=== PATIENT | male | born 1960 | race African-American/Black ===

== ENCOUNTER 2020-01-26 10:26 | Emergency (ER) | payer OTHER ==
[~2020-01-26] VITALS: Ht 177.8 cm; Wt 45.4 kg
[~2020-01-26 10:26] MED LIST: ASPI-498 OR; LISI-285 PO
[2020-01-26] MEDS ORDERED: SODIUM CHLORIDE 0.9% 1,000 ML IV ONE ×2 (10:32)
[2020-01-26 10:51] LABS: Basophils # (auto) 0 10 ^3/uL (0-0.2); Eosinophils # (auto) 0 10 ^3/uL (0-0.8); Eosinophils % (auto) 0.4 % (0.0-7.0); Monocytes # (auto) 0.5 10 ^3/uL (0-1.3)
[2020-01-26 10:52] LABS: Basophils % (auto) 0.4 % (0.0-2.0); Hematocrit 36.6 % (41.0-53.0); Hemoglobin 11.9 g/dL (13.5-17.5); Lymphocytes # (auto) 1.1 10 ^3/uL (0.4-5.4); Mean Corpuscular Hemoglobin 27.3 pg (28.0-32.0); Mean Corpuscular Hgb Conc. 32.7 g/dL (32.0-36.0); Mean Corpuscular Volume 83.7 fL (80.0-100.0); Monocytes % (auto) 5.1 % (0.0-12.0); Neutrophils # (auto) 7.9 10 ^3/uL (1.6-8.6); Neutrophils % (auto) 82.1 % (37.0-80.0); Platelet Count (auto) 324 10^3/uL (140-450); Red Blood Cells 4.37 10^6/uL (4.5-5.90); Red Cell Distribution Width 14.4 % (11.8-14.3); White Blood Cell 9.6 10^3/uL (4.4-10.8)
[2020-01-26 11:13] LABS: Albumin 3.1 g/dL (3.4-5.0); Anion Gap 6 (5-15); Blood Urea Nitrogen 14 mg/dL (7-18); Carbon Dioxide 27 mmol/L (21-32); Chloride 100 mmol/L (98-107); Glucose 115 mg/dL (74-106); Potassium 3.3 mmol/L (3.5-5.1); Sodium 133 mmol/L (136-145)
[2020-01-26 11:19] LABS: Alanine Aminotransferase 18 U/L (16-61); Alkaline Phosphatase 98 U/L (45-117); Aspartate Aminotransferase 19 U/L (15-37); Bilirubin, Total 0.8 mg/dL (0.2-1.0); GFR African American 67 mL/min; GFR Non-African American 55 mL/min; Uric Acid 7.7 mg/dL (3.5-7.2)
[2020-01-26 12:31] LABS: Urine Bacteria NONE SEEN /hpf (None Seen); Urine Blood Negative /uL (Negative); Urine Mucus FEW (None Seen); Urine Specific Gravity 1.021 (1.001-1.035); Urine WBC 1 /hpf (0 - 3)
[2020-01-26] MEDS ORDERED: INDOMETHACIN 25 MG CAP PO ONE (13:00)
[2020-01-26] MEDS ORDERED: CARISOPRODOL 350 MG TAB PO ONE (13:00)
[2020-01-26 14:44] VITALS: BP 117/61
== END 2020-01-26 14:45 | disposition home or self-care (01) ==
LOC: EDBD 10:26 → ER 10:26
DX: M10.062 Idiopathic gout, left knee (principal); M10.061 Idiopathic gout, right knee; G89.29 Other chronic pain; R19.7 Diarrhea, unspecified; I10 Essential (primary) hypertension
CPT/HCPCS: 36415; 73560; 80053; 81001; 84484; 84550; 85025

== ENCOUNTER 2024-04-03 03:06 | Emergency (ER) | payer MEDICAID, OTHER ==
[~2024-04-03] VITALS: Ht 177.8 cm; Wt 109.2 kg
[2024-04-03 03:32] VITALS: BP 142/81; PULSE 60; RESP 16; TEMP 98.2
[2024-04-03] MEDS: KETOROLAC TROMETH 60MG/2ML VIAL IM ONE (04:25)
[2024-04-03 04:29] LABS: Basophils # (auto) 0 10 ^3/uL (0-0.2); Hemoglobin 12.9 g/dL (13.5-17.5); Neutrophils # (auto) 3.3 10 ^3/uL (1.6-8.6); Nucleated Red Blood Cells % 0.1 %
[2024-04-03 04:32] LABS: Basophils % (auto) 0.4 % (0.0-2.0); Eosinophils # (auto) 0.2 10 ^3/uL (0-0.8); Eosinophils % (auto) 3.5 % (0.0-7.0); Hematocrit 39.9 % (41.0-53.0); Lymphocytes # (auto) 2.9 10 ^3/uL (0.4-5.4); Lymphocytes % (auto) 41.9 % (10.0-50.0); Mean Corpuscular Hemoglobin 26.1 pg (28.0-32.0); Mean Corpuscular Hgb Conc. 32.3 g/dL (32.0-36.0); Mean Corpuscular Volume 80.8 fL (80.0-100.0); Monocytes # (auto) 0.5 10 ^3/uL (0-1.3); Monocytes % (auto) 7.6 % (0.0-12.0); Neutrophils % (auto) 46.6 % (37.0-80.0); Red Blood Cells 4.93 10^6/uL (4.5-5.90); Red Cell Distribution Width 15.1 % (11.8-14.3)
[2024-04-03 04:45] LABS: Alanine Aminotransferase 19 U/L (7-40); Albumin 4.5 g/dL (3.2-4.8); Alkaline Phosphatase 76 U/L (46-116); Anion Gap 5 (5-15); Aspartate Aminotransferase 19 U/L (13-40); BUN/Creatinine Ratio 11.7 (10.0-20.0); Bilirubin, Total 0.3 mg/dL (0.2-1.0); Blood Urea Nitrogen 15 mg/dL (9-23); Calcium 9.3 mg/dL (8.5-10.1); Carbon Dioxide 26 mmol/L (20-30); Chloride 105 mmol/L (98-107); Glucose 104 mg/dL (74-106); Potassium 3.9 mmol/L (3.5-5.1); Sodium 136 mmol/L (136-145); Total Protein 7.6 g/dL (5.7-8.2)
[2024-04-03 04:54] LABS: CRP High Sensitivity 1.07 mg/dL (<1.0)
[2024-04-03 05:17] VITALS: O2SAT 99
[2024-04-03 06:22] LABS: Erythrocyte Sedimentation Rate 46 mm/hr (0-20)
[2024-04-03] MEDS: DexAMETHasone SOD PHOS 10MG/1ML VIAL INJ IM ONE (06:35)
[2024-04-03] MEDS ORDERED: INDO50CA82 PO (06:48)
[2024-04-03] MEDS ORDERED: COLC1CAP PO (06:48)
== END 2024-04-03 07:19 | disposition home or self-care (01) ==
LOC: ER 03:06
DX: M25.521 Pain in right elbow (principal); I10 Essential (primary) hypertension; I82.621 Acute embolism and thrombosis of deep veins of right upper extremity; Z78.9 Other specified health status
CPT/HCPCS: 36415; 73200; 80053; 84550; 85025; 85379; 85652; 86141; 93971; 96372; 99285; J1100; J1885

== ENCOUNTER 2025-01-06 10:44 | Emergency (ER) | payer MEDICAID ==
[~2025-01-06] VITALS: Ht 175.3 cm; Wt 114.7 kg
[~2025-01-06 10:44] MED LIST changes: +COLC1CAP PO; +INDO50CA82 PO
[2025-01-06 11:52] VITALS: BP 143/73; PULSE 65; RESP 16; TEMP 99.5; O2SAT 95
[2025-01-06] MEDS ORDERED: AUG875T PO (12:37)
[2025-01-06] MEDS ORDERED: PROM1SOL4 PO (12:37)
[2025-01-06] MEDS ORDERED: PSEU120T18 PO (12:37)
[2025-01-06] MEDS ORDERED: BENZ100C97 PO (12:37)
[2025-01-06] MEDS ORDERED: IBUP-1455 PO (12:37)
--- NOTE | 2025-01-06 12:38 | ED.PDOC ---
SOB-HPI HPI Comments 64-year-old presents for URI symptoms x4 days. Complains of congestion, body aches, nonproductive cough and sore throat Chief Complaint: Flu like Time Seen by MD: 11:10 Primary Care Provider: SALINA Bell notes: Nurses Notes, Medications, Allergies Information Source: Patient Mode of Arrival: Ambulatory Past Medical History PAST MEDICAL HISTORY: HTN Surgical History: Denies all surgeries Family History Family History: Reviewed,noncontributory to illness Social History Smoker: Non-Smoker Alcohol: Denies ETOH Use Drugs: Denies Drug Use Lives In: Home All Other Systems: Reviewed and Negative (Per HPI) Physical Exam General Appearance: No Apparent Distress, Normal HEENT: Normal ENT Inspection, Pharynx Normal, TMs Normal Neck: Full Range of Motion, Non-Tender, Normal, Normal Inspection Respiratory: Chest Non-Tender, Lungs Clear, No Accessory Muscle Use, No Respiratory Distress, Normal Breath Sounds Cardiovascular: No Murmur, No Gallop, Regular Rate/Rhythm Breast Exam: Deferred Gastrointestinal: No Organomegaly, Non Tender, No Pulsatile Mass, Normal Bowel Sounds, Soft Genitalia: Deferred Pelvic: Deferred Rectal: Deferred Extremities: No calf tenderness, Normal capillary refill, Normal inspection, Normal range of motion, Non-tender, No pedal edema Musculoskeletal : Apperance: Normal Neurologic: Alert, photovoltaic installer II-XII nml as Tested, No Motor Deficits, Normal Affect, Normal Mood, No Sensory Deficits Cerebellar Function: Normal Reflexes: Normal Skin: Dry, Normal Color, Warm Lymphatic: No Adenopathy Was a procedure done? Was a procedure done?: No Differential Dx Differential Diagnosis: URI X-Ray, Labs, Meds, VS Vital Signs Date Time Temp Pulse Resp B/P (MAP) Pulse Ox O2 Delivery O2 Flow Rate FiO2 01/06/25 11:52 99.5 65 16 143/73 (96) 95 99.5 01/06/25 11:52 65 16 95 Room Air 01/06/25 11:03 99.5 65 16 143/73 (96) 95 X-Ray, Labs, Meds, VS Comment History and physical consistent of URI Take medication as prescribed. Discussed that cough can linger up to 6 weeks after viral URI ED precautions if cough does not alleviate or if cough worsens Supportive care and return precautions discussed Counseled viral infection and explained that antibiotics would not be helpful in resolving the illness sooner. Recommended vitamin C, rest, handwashing, and symptomatic care. Expect 2-week course with possibly of cough lingering up to 6 weeks. Nonpharmacological remedies for fluids has been recommended as well Time of 1ST Reevaluation: 12:36 Reevaluation 1ST: Improved Patient Education/Counseling: Diagnosis, Treatment Family Education/Counseling: Diagnosis, Treatment Departure 1 Departure Time of Disposition: 12:36 Impression: Primary Impression: Bronchitis Disposition: HOME / SELF CARE / HOMELESS Condition: Stable e-Prescriptions Pseudoephedrine-Guaifenesin (Mucinex D) 1 Tab Tab 1 TAB PO BID for 10 Days, #20 TAB 0 Refills Prov: LISA CURTIS NP 01/06/25 Ibuprofen Micronized (Ibuprofen) 800 Mg Tab 800 MG PO TID for 10 Days, #30 TAB 0 Refills Prov: LISA CURTIS NP 01/06/25 Promethazine-Dm (Promethazine Dm 6.25-15 mg/5Ml) 1 [place] 5 ML PO TID for 10 Days, #150 ML 0 Refills Prov: LISA CURTIS NP 01/06/25 Benzonatate (Benzonatate) 100 Mg Cap 1 CAP PO TID for 10 Days, #30 CAP 0 Refills Prov: LISA CURTIS NP 01/06/25 Amoxicillin & Pot Clavulanate (AUGMENTIN TABLET) 875 Mg Tb 875 MG PO BID for 7 Days, #14 TAB 0 Refills Prov: LISA CURTIS NP 01/06/25 Critical Care Note Critical Care Time?: No Stability Stability form required: No Heart Score Heart Score: Heart Score Response (Comments) Value History N/A 0 EKG N/A 0 Age N/A 0 Risk Factors N/A 0 Troponin N/A 0 Total 0 LISA CURTIS NP Jan 06, 2025 12:38
== END 2025-01-06 12:45 | disposition home or self-care (01) ==
LOC: ER 10:44
DX: J40 Bronchitis, not specified as acute or chronic (principal); I10 Essential (primary) hypertension

== ENCOUNTER 2025-08-13 15:59 | Emergency (ER) | payer MEDICAID ==
[~2025-08-13] VITALS: Ht 182.9 cm; Wt 109.0 kg
[~2025-08-13 15:59] MED LIST changes: +AUG875T PO; +BENZ100C97 PO; +IBUP-1455 PO; +PROM1SOL4 PO; +PSEU120T18 PO
--- NOTE | 2025-08-13 16:11 | ED.PDOC ---
Musculoskeletal HPI Comments 65 y.o male with PMHx of gout, HTN, and Asthma, presents to the ED via EMS for a chief complaint of right foot swelling and pain radiating up to his right knee associated with SOB x 1-2 days. Patient reports symptoms are similar to previous gout flare ups. Patient reports recent increased stress due to recent loss of his . He denies any numbness, tingling sensation to right leg, chest pain, fever, chills, nausea, vomiting. Vital signs were stable on arrival. Time Seen by MD: 16:05 Primary Care Provider: SALINA Reviewed Notes: Nurses Notes, Theatre Manager Notes, Medications, Allergies Allergies: Coded Allergies: NO KNOWN ALLERGIES (Unverified , 10/04/13) Home Meds Active Scripts Pseudoephedrine-Guaifenesin (Mucinex D) 1 Tab Tab, 1 TAB PO BID for 10 Days, #20 TAB 0 Refills Prov:LISA CURTIS BOAT RENTAL CLERK 01/06/25 Ibuprofen Micronized (Ibuprofen) 800 Mg Tab, 800 MG PO TID for 10 Days, #30 TAB 0 Refills Prov:LISA CURTIS BOAT RENTAL CLERK 01/06/25 Promethazine-Dm (Promethazine Dm 6.25-15 mg/5Ml) 1 [place], 5 ML PO TID for 10 Days, #150 ML 0 Refills Prov:LISA CURTIS BOAT RENTAL CLERK 01/06/25 Benzonatate (Benzonatate) 100 Mg Cap, 1 CAP PO TID for 10 Days, #30 CAP 0 Refills Prov:LISA CURTIS BOAT RENTAL CLERK 01/06/25 Amoxicillin & Pot Clavulanate (AUGMENTIN TABLET) 875 Mg Tb, 875 MG PO BID for 7 Days, #14 TAB 0 Refills Prov:LISA CURTIS BOAT RENTAL CLERK 01/06/25 Colchicine (Colchicine) 0.6 Mg Cap, 0.6 MG PO BID, #30 CAP Prov:MITZY SAVAGE 04/03/24 Indomethacin (Indomethacin) 50 Mg Cap, 1 CAP PO TID, #30 CAP Prov:MITZY SAVAGE 04/03/24 Reported Medications Lisinopril & Hydrochlorothiazi (Lisinopril/Hydrochlorothi) 1 Tab Tab, 12.5 TAB PO DAILY, TAB 10/04/13 Aspirin (ASPIRIN 81) 81 Mg Tab, 81 MG OR DAILY, TAB 10/04/13 Information Source: Patient Mode of Arrival: EMS Location: Right Extremity Location: Foot, Great Toe, Leg Timing: Days Prehospital treatment: None Severity: Moderate Able to Move Extremity: Yes Bear Weight: Limited Pain: Moderate Hand Dominance: Right Mechanism: Spontaneous, None Circumstances: Spontaneous Onset of Symptoms: Spontaneous Symptoms: Swelling, Pain DVT Risk Factors: NONE History of: Gout Associated signs and symptoms: Swelling, SOB, Leg pain, Foot pain Past Medical History PAST MEDICAL HISTORY: Asthma, Gout, HTN Surgical History: Denies all surgeries Family History Family History: Reviewed,noncontributory to illness Social History Smoker: Non-Smoker Alcohol: Denies ETOH Use Drugs: Denies Drug Use Lives In: Home Constitutional: denies: chills, diaphoresis, fatigue, fever, malaise, sweats, weakness, others EENTM: denies: blurred vision, double vision, ear bleeding, ear discharge, ear drainage, ear pain, ear ringing, eye pain, eye redness, hearing loss, mouth pain, mouth swelling, nasal discharge, nose bleeding, nose congestion, nose pain, photophobia, tearing, throat pain, throat swelling, voice changes, others Respiratory: reports: shortness of breath, SOB with excertion; denies: cough, hemoptysis, orthopnea, SOB at rest, stridor, wheezing, others Cardiovascular: denies: chest pain, dizzy spells, diaphoresis, Dyspnea on exertion, edema, irregular heart beat, left arm pain, lightheadedness, palpitations, PND, syncope, others Gastrointestinal: denies: abdomen distended, abdominal pain, blood streaked bowels, constipated, diarrhea, dysphagia, difficulty swallowing, hematemesis, melena, nausea, poor appetite, poor fluid intake, rectal bleeding, rectal pain, vomiting, others Genitourinary: denies: burning, dysuria, flank pain, frequency, hematuria, incontinence, penile discharge, penile sore, pain, testicle pain, testicle swelling, urgency, others Neurological: denies: dizziness, fainting, headache, left sided numbness, left sided weakness, numbness, paresthesia, pre-existing deficit, right sided numbness, right sided weakness, seizure, speech problems, tingling, tremors, weakness, others Musculoskeletal: reports: others (right foot swelling with pain radiating up to his knee ); denies: back pain, gout, joint pain, joint swelling, muscle pain, muscle stiffness, neck pain Integumetry: denies: bruises, change in color, change in hair/nails, dryness, laceration, lesions, lumps, rash, wounds, others Allergic/Immunocompromised: denies: Difficulty Healing, Frequent Infections, Hives, Itching, others Hematologic/Lymphatic: denies: anemia, blood clots, easy bleeding, easy bruising, swollen glands, others Endocrine: denies: excessive hunger, excessive sweating, excessive thirst, excessive urination, flushing, intolerance to cold, intolerance to heat, unexplained weight gain, unexplained weight loss, others Psychiatric: denies: anxiety, bipolar disorder, depression, hopeless, panic disorder, schizophrenia, sleepless, suicidal, others All Other Systems: Reviewed and Negative Physical Exam General Appearance: Moderate Distress (Moderate distress due to right leg pain concerns.), Obese HEENT: Normal ENT Inspection, Pharynx Normal, TMs Normal Neck: Full Range of Motion, Non-Tender, Normal, Normal Inspection Respiratory: Chest Non-Tender, Lungs Clear, No Accessory Muscle Use, No Respiratory Distress, Normal Breath Sounds Cardiovascular: No Edema, No JVD, No Murmur, No Gallop, Normal Peripheral Pulses, Regular Rate/Rhythm Breast Exam: Deferred Gastrointestinal: No Organomegaly, Non Tender, No Pulsatile Mass, Normal Bowel Sounds, Soft Genitalia: Deferred Pelvic: Deferred Rectal: Deferred Extremities: Other (Exquisite tenderness to palpation throughout the 1st MCP up to the ankle and towards the right distal lower extremity. Localized erythema noted without edema. Patient has a difficult time bearing weight.) Neurologic: Alert Cerebellar Function: NOT DONE Reflexes: NOT DONE Skin: Dry, Normal Color, Warm Lymphatic: No Adenopathy Was a procedure done? Was a procedure done?: No Differential Diagnosis EXT Differential Diagnosis: Cellulitis, Fracture, Sprain, Gout, Strain, Other (Degenerative disc disease of the lumbar spine, sepsis, electrolyte abnormality) X-Ray, Labs, Meds, VS Vital Signs Date Time Temp Pulse Resp B/P (MAP) Pulse Ox O2 Delivery O2 Flow Rate FiO2 08/13/25 19:47 85 16 100 Room Air 08/13/25 19:10 98.5 85 16 132/75 (94) 100 98.5 08/13/25 15:59 98.2 85 18 148/79 100 98.2 Lab Test 08/13/25 20:04 08/13/25 19:09 08/13/25 18:27 08/13/25 16:50 Range/Units Troponin I High Sensitivity 3 L 3 L 3 L </=54 ng/L Urine Color Yellow Yellow Urine Clarity Clear Clear Urine pH 6.0 5.0-9.0 Urine Specific Bryant 1.025 1.001-1.035 Urine Protein 1+ H Negative Urine Ketones Trace Negative Urine Blood Negative Negative /uL Urine Nitrite Negative Negative Urine Bilirubin Negative Negative Urine Urobilinogen 2 H Negative mg/dL Urine Leukocyte Esterase Negative Negative /uL Urine RBC 1 0 - 3 /hpf Urine Microscopic WBC 1 0-3 /HPF Urine Squamous Epithelial Cells Few <5 /hpf Urine Bacteria Few H None Seen /hpf Urine Mucus Few None Seen Urine Glucose Normal Normal mg/dL White Blood Count 11.7 H 4.4-10.8 10^3/uL Red Blood Count 4.45 L 4.5-5.90 10^6/uL Hemoglobin 12.2 L 13.5-17.5 g/dL Hematocrit 36.8 L 41.0-53.0 % Mean Corpuscular Volume 82.9 80.0-100.0 fL Mean Corpuscular Hemoglobin 27.4 L 28.0-32.0 pg Mean Corpuscular Hemoglobin Concent 33.0 32.0-36.0 g/dL Red Cell Distribution Width 15.0 H 11.8-14.3 % Platelet Count 379 140-450 10^3/uL Mean Platelet Volume 7.2 6.9-10.8 fL Neutrophils (%) (Auto) 71.4 37.0-80.0 % Lymphocytes (%) (Auto) 18.7 10.0-50.0 % Monocytes (%) (Auto) 8.2 0.0-12.0 % Eosinophils (%) (Auto) 1.3 0.0-7.0 % Basophils (%) (Auto) 0.4 0.0-2.0 % Neutrophils # (Auto) 8.3 1.6-8.6 10 ^3/uL Lymphocytes # (Auto) 2.2 0.4-5.4 10 ^3/uL Monocytes # (Auto) 1.0 0-1.3 10 ^3/uL Eosinophils # (Auto) 0.2 0-0.8 10 ^3/uL Basophils # (Auto) 0.1 0-0.2 10 ^3/uL Nucleated Red Blood Cells 0.1 % Sodium Level 137 136-145 mmol/L Potassium Level 3.4 L 3.5-5.1 mmol/L Chloride Level 98 98-107 mmol/L Carbon Dioxide Level 26 20-31 mmol/L Anion Gap 13 5-15 Blood Urea Nitrogen 14 9-23 mg/dL Creatinine 1.26 0.700-1.30 mg/dL Glomerular Filtration Rate Calc 63 >90 mL/min BUN/Creatinine Ratio 11.1 10.0-20.0 Serum Glucose 101 74-106 mg/dL Uric Acid 9.8 H 3.7-9.2 mg/dL Calcium Level 9.6 8.7-10.4 mg/dL Total Bilirubin 0.8 0.2-1.0 mg/dL Aspartate Amino Transferase (AST) 29 13-40 U/L Alanine Aminotransferase (ALT) 33 7-40 U/L Alkaline Phosphatase 144 H 46-116 U/L B-Type Natriuretic Peptide 40.93 0-100 pg/mL Total Protein 8.3 H 5.7-8.2 g/dL Albumin 4.7 3.2-4.8 g/dL Lipase 34 12-53 U/L Current Medications Medications (Trade) Dose Ordered Sig/Padma Route Start Time Stop Time Status Last Admin Acetaminophen/ Hydrocodone Bitart ([place] 10/325MG Tab) 1 tab ONCE ONCE PO 08/13/25 16:15 08/13/25 16:16 DC 08/13/25 19:42 X-Ray, Labs, Meds, VS Comment All studies performed in the ED were evaluated by me personally. Serum laboratories were unremarkable for any systemic concerns, but uric acid confirmed a gout flare-up. Chest x-ray was unremarkable for any consolidation or intrapulmonary concerns, but lumbar spine series showed some degenerative disc disease of the lumbar spine. Patient states the only thing that works for him is prednisone. Patient states it colchicine has never been effective. Advised patient utilize medication as directed for his gout flare additionally, patient should follow up with the primary care provider for discussions related to low back pain concerns. 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 Patient should follow up with his primary care provider for discussions related to evaluation of low back pain concerns. e-Prescriptions Hydrocodone-Acetaminophen (Hydrocodone Bitartrate/AC 10-325 mg) 1 Tab Tab 1 TAB PO Q8HP PRN, #10 TAB Prov: JERRY DOMINGUEZ PAC 08/13/25 Prednisone (Prednisone) 10 Mg Ronen 40 MG PO DAILY for 10 Days, #28 PACK Take four tablets on day one through three, three tablets on day four through six, two tablets on day seven through nine, one tablet on day 10. Prov: JERRY DOMINGUEZ PAC 08/13/25 Discharged With: Self, Friend Critical Care Note Critical Care Time?: No Stability Stability form required: No I personally scribed for JERRY DOMINGUEZ PAC ([email or web address]) on 08/13/25 at 16:11. Electronically submitted by Bee Moore ([facility]). JERRY DOMINGUEZ PAC Aug 13, 2025 16:11
--- NOTE | 2025-08-13 16:57 | DVH ---
Indication: Back pain Technique: XY LUMBAR SPINE 3 VIEWXY Comparison: None FINDINGS/IMPRESSION: The lumbar vertebral body heights are maintained. [id number] multilevel disc space narrowing w ith endplate sclerosis. Alignment preserved.
--- NOTE | 2025-08-13 17:01 | DVH ---
CHEST RADIOGRAPH Indication: CP Technique: Single frontal view of the chest was obtained Comparison: XR CHEST 1 VIEW on DOS: 09/05/22 FINDINGS: Lines and Tubes: None Lungs: No focal consolidation. Fullness of the right paratracheal stripe Pleura: No effusion. No pneumothorax. Cardiomediastinal contours: Unremarkable Bones: No acute osseous abnormality. IMPRESSION: No acute cardiopulmonary disease. Fullness of the right paratracheal stripe which may be from vasculature. If there is concern for enla rged thyroid or mediastinal mass, CT should be considered for further evaluation.
[2025-08-13 17:37] LABS: Alanine Aminotransferase 33 U/L (7-40); Anion Gap 13 (5-15); BUN/Creatinine Ratio 11.1 (10.0-20.0); Blood Urea Nitrogen 14 mg/dL (9-23); Calcium 9.6 mg/dL (8.7-10.4); Carbon Dioxide 26 mmol/L (20-31); Glucose 101 mg/dL (74-106); Sodium 137 mmol/L (136-145)
[2025-08-13 17:38] LABS: Albumin 4.7 g/dL (3.2-4.8); Bilirubin, Total 0.8 mg/dL (0.2-1.0)
[2025-08-13 17:40] LABS: Alkaline Phosphatase 144 U/L (46-116); Chloride 98 mmol/L (98-107); Potassium 3.4 mmol/L (3.5-5.1); Total Protein 8.3 g/dL (5.7-8.2)
[2025-08-13 17:41] LABS: Hematocrit 36.8 % (41.0-53.0); Hemoglobin 12.2 g/dL (13.5-17.5); Mean Corpuscular Hemoglobin 27.4 pg (28.0-32.0); Mean Corpuscular Volume 82.9 fL (80.0-100.0); Nucleated Red Blood Cells % 0.1 %
[2025-08-13 17:49] LABS: Uric Acid 9.8 mg/dL (3.7-9.2)
[2025-08-13 17:50] LABS: Lipase 34 U/L (12-53)
[2025-08-13 19:10] VITALS: BP 132/75; TEMP 98.5
[2025-08-13] MEDS: HYDROcodone-ACET 10/325MG TAB PO ONE (19:42)
[2025-08-13 19:47] VITALS: PULSE 85; RESP 16; O2SAT 100
[2025-08-13 20:38] LABS: Urine Protein, UAD 1+ (Negative)
[2025-08-13] MEDS: COLCHICINE 0.6 MG CAP PO ONE (21:21)
[2025-08-13] MEDS: predniSONE 20 MG TAB PO ONE (21:28)
[2025-08-13] MEDS ORDERED: PRED1PAK9 PO (21:35)
[2025-08-13] MEDS ORDERED: HYDR-4798 PO (21:35)
== END 2025-08-13 21:52 | disposition home or self-care (01) ==
LOC: EDBD 15:59 → ER 15:59
DX: M51.369 Other intervertebral disc degeneration, lumbar region without mention of lumbar back pain or lower extremity pain (principal); M10.9 Gout, unspecified; J45.909 Unspecified asthma, uncomplicated; I10 Essential (primary) hypertension; Z79.899 Other long term (current) drug therapy; Z79.82 Long term (current) use of aspirin; Z79.1 Long term (current) use of non-steroidal anti-inflammatories (NSAID)
CPT/HCPCS: 36415; 71045; 72100; 80053; 81001; 83690; 83880; 84484; 84550; 85025; 99284; J7512